=== PATIENT | male | born 1940 | race African-American/Black ===

== ENCOUNTER 2019-07-18 10:43 | Outpatient (CLI) | payer MEDICARE ==
--- NOTE | 2019-07-18 12:20 | Diagnostic Imaging Report ---
Indication: Dyspnea Comparison: None 2 views of the chest obtained. Findings: Basilar consolidation versus atelectasis demonstrated. Bilateral pleural effusions are present. There is interstitial edema present. Heart size is normal. Right chest port is present in good position. The tip is projected over the upper part of the right atrium. Bones are unremarkable. IMPRESSION: Suspected interstitial edema. Bilateral pleural effusions Basal atelectasis versus pneumonia. Chest port in good position
== END 2019-07-18 12:43 | disposition home or self-care (01) ==
LOC: RAD 10:43
DX: R06.00 Dyspnea, unspecified (principal); J90 Pleural effusion, not elsewhere classified
CPT/HCPCS: 71046